=== PATIENT | female | born 1965 | race Caucasian/White ===

== ENCOUNTER 2022-04-04 10:15 | Inpatient (IN) ==
[2022-04-04 12:46] LABS: Hematocrit 41.8 % (35.3-44.9); Hemoglobin 14.1 g/dL (11.5-15.4); Mean Corpuscular HGB Conc 33.7 g/dL (31.6-35.5); Mean Corpuscular Hemoglobin 30.7 pg (28.0-33.3); Mean Corpuscular Volume 91.1 fL (83.0-100.0); Mean Platelet Volume 8.5 fL (9.4-12.4); Platelet Count 377 K/mcL (140-400); Red Blood Count 4.59 M/mcL (3.82-4.97); Red Cell Distribution Width 13.6 % (11.5-14.5); White Blood Count 13.6 K/mcL (4.3-11.1)
[2022-04-04 12:49] LABS: Lymphocytes # 0.5 K/mcL (0.6-4.6)
[2022-04-04 13:07] LABS: Troponin I < 0.03 ng/mL (< 0.04)
[2022-04-04 13:09] LABS: BUN/Creatinine Ratio 7 (6-26); Blood Urea Nitrogen 4 mg/dL (6-20); Calcium 8.9 mg/dL (8.6-10.3); Carbon Dioxide 26 mEq/L (23-29); Chloride 96 mEq/L (98-107); Glucose 120 mg/dL (70-105); Osmolality,Calculated 270 (280-300); Potassium 4.2 mEq/L (3.5-5.1); Sodium 131 mEq/L (136-145); eGFR For African Americans > 60 (> 60); eGFR For Non-African Americans > 60 (> 60)
[2022-04-04 13:13] LABS: Monocytes # 0.8 K/mcL (0.0-1.3); Neutrophils # 12.2 K/mcL (1.6-8.9)
[2022-04-04 13:14] LABS: Platelet Estimate Normal (Normal)
[2022-04-04] MEDS ORDERED: Ipratropium/Albuterol Neb 3 ML IH ONE (14:13)
[2022-04-04] MEDS ORDERED: methylPREDNISolone 125 MG/2 ML VIAL IVP ONE (14:41)
[2022-04-04] MEDS ORDERED: Azithromycin 500 MG in 0.9 % Sodium Chloride 250 ML IVPB ONE (14:45)
[2022-04-04] MEDS ORDERED: cefTRIAXone 1,000 MG in Water for inj. (sterile) 10 ML IVP ONE (15:00)
[2022-04-04] MEDS ORDERED: Acetaminophen 325 MG TABLET PO PRN (17:06)
[2022-04-04] MEDS ORDERED: Mag Hydrox/Al Hydrox/Simeth 30 ML UDC PO PRN (17:06)
[2022-04-04] MEDS ORDERED: Naloxone 0.4 MG/ML INJ IVP PRN (17:06)
[2022-04-04] MEDS ORDERED: MOM Conc 10 ML UD.LIQ PO PRN (17:06)
[2022-04-04] MEDS: Nicotine 21 MG PATCH.TD24 TD SCH (18:56)
[2022-04-04] MEDS: Budesonide/Formoterol 160/4.5 1 PUFF INH IH SCH (20:18)
[2022-04-04] MEDS: Ipratropium/Albuterol Neb 3 ML IH SCH (20:19)
[2022-04-04] MEDS: Melatonin 3 MG TABLET PO PRN (21:07)
[2022-04-04] MEDS: Benzonatate 100 MG CAPSULE PO PRN (21:07)
[2022-04-04] MEDS: Ondansetron 4 MG/2 ML VIAL IVP PRN (21:09)
[2022-04-04 22:15] LABS: Adenovirus Not Detected (Not Detect); Bordetella Pertussis Not Detected (Not Detect); Chlamydophila pneumoniae Not Detected (Not Detect); Coronavirus 229E Not Detected (Not Detect); Coronavirus HKU1 Not Detected (Not Detect); Coronavirus NL63 Not Detected (Not Detect); Coronavirus OC43 Not Detected (Not Detect); Human Metapneumovirus Not Detected (Not Detect); Human Rhinovirus/Enterovirus DETECTED (Not Detect); Influenza A Subtype 2009 H1 Not Detected (Not Detect); Influenza B Not Detected (Not Detect); Mycoplasma pneumoniae Not Detected (Not Detect); Parainfluenza Virus 1 Not Detected (Not Detect); Parainfluenza Virus 2 Not Detected (Not Detect); Parainfluenza Virus 3 Not Detected (Not Detect); Parainfluenza Virus 4 Not Detected (Not Detect); Respiratory Syncytial Virus Not Detected (Not Detect); SARS-CoV-2 Not Detected (Not Detect)
[2022-04-05] MEDS: MethylPREDNISolone 40 MG/ML VIAL IVP SCH ×3 (00:26→14:58)
[2022-04-05] MEDS: Ipratropium/Albuterol Neb 3 ML IH SCH ×6 (00:33→20:37)
[2022-04-05] MEDS: Ondansetron 4 MG/2 ML VIAL IVP PRN (05:42)
[2022-04-05] MEDS: *HR* Enoxaparin 40 MG/0.4 ML SYRINGE SQ SCH (05:43)
[2022-04-05 07:18] LABS: Basophils # 0.1 K/mcL (0.0-0.2); Basophils % 0.4 %; Eosinophils % 0.2 %; Hematocrit 38.9 % (35.3-44.9); Hemoglobin 13.4 g/dL (11.5-15.4); Immature Granulocytes % 2.9 % (0-4); Lymphocytes # 0.8 K/mcL (0.6-4.6); Lymphocytes % 5.8 %; Mean Corpuscular HGB Conc 34.4 g/dL (31.6-35.5); Mean Corpuscular Hemoglobin 31.1 pg (28.0-33.3); Mean Corpuscular Volume 90.3 fL (83.0-100.0); Mean Platelet Volume 8.3 fL (9.4-12.4); Monocytes % 6.9 %; Neutrophils # 11.9 K/mcL (1.6-8.9); Platelet Count 417 K/mcL (140-400); Red Blood Count 4.31 M/mcL (3.82-4.97); Red Cell Distribution Width 13.5 % (11.5-14.5); Segmented Neutrophils % 83.8 %; White Blood Count 14.2 K/mcL (4.3-11.1)
[2022-04-05 07:43] LABS: BUN/Creatinine Ratio 13 (6-26); Blood Urea Nitrogen 8 mg/dL (6-20); Calcium 9.1 mg/dL (8.6-10.3); Carbon Dioxide 27 mEq/L (23-29); Chloride 98 mEq/L (98-107); Glucose 138 mg/dL (70-105); Osmolality,Calculated 279 (280-300); Potassium 3.8 mEq/L (3.5-5.1); Sodium 134 mEq/L (136-145); eGFR For African Americans > 60 (> 60); eGFR For Non-African Americans > 60 (> 60)
[2022-04-05] MEDS: Budesonide/Formoterol 160/4.5 1 PUFF INH IH SCH ×2 (07:44→20:37)
[2022-04-05] MEDS ORDERED: Azithromycin desensitization 1 mg/mL IVP SCH (09:00)
[2022-04-05] MEDS: *HR* HYDROcodone/Acet 5/325 mg TABLET PO PRN ×3 (09:10→19:16)
[2022-04-05] MEDS: amLODIPine 5 MG TABLET PO SCH (09:11)
[2022-04-05] MEDS: Nicotine 21 MG PATCH.TD24 TD SCH (09:12)
[2022-04-05] MEDS: Ibuprofen 800 MG TABLET PO PRN ×2 (12:28→21:40)
[2022-04-05] MEDS ORDERED: Pregabalin 50 MG CAPSULE PO SCH (12:30)
[2022-04-05] MEDS: cefTRIAXone 2,000 MG in 0.9 % Sodium Chloride Mini Bag 100 ML IVPB SCH (16:38)
[2022-04-05] MEDS: Azithromycin 500 MG in 0.9 % Sodium Chloride 250 ML IVPB SCH (17:13)
[2022-04-05] MEDS: Carisoprodol 350 MG TABLET PO PRN (21:40)
[2022-04-05] MEDS: Levalbuterol Neb 0.63 MG/3 ML IH SCH (23:24)
[2022-04-06] MEDS: MethylPREDNISolone 40 MG/ML VIAL IVP SCH ×3 (00:12→18:35)
[2022-04-06] MEDS: Melatonin 3 MG TABLET PO PRN (00:35)
[2022-04-06] MEDS: *HR* HYDROcodone/Acet 5/325 mg TABLET PO PRN ×5 (00:35→23:03)
[2022-04-06] MEDS: Pregabalin 50 MG CAPSULE PO SCH ×3 (00:37→21:55)
[2022-04-06] MEDS: Levalbuterol Neb 0.63 MG/3 ML IH SCH ×4 (04:21→22:02)
[2022-04-06] MEDS: *HR* Enoxaparin 40 MG/0.4 ML SYRINGE SQ SCH ×2 (05:57→06:01)
[2022-04-06 07:16] LABS: Basophils # 0.1 K/mcL (0.0-0.2); Basophils % 0.5 %; Eosinophils % 0.1 %; Hematocrit 39.4 % (35.3-44.9); Hemoglobin 13.5 g/dL (11.5-15.4); Immature Granulocytes % 4.4 % (0-4); Lymphocytes # 1.2 K/mcL (0.6-4.6); Mean Corpuscular HGB Conc 34.3 g/dL (31.6-35.5); Mean Corpuscular Hemoglobin 30.8 pg (28.0-33.3); Mean Corpuscular Volume 89.7 fL (83.0-100.0); Mean Platelet Volume 8.4 fL (9.4-12.4); Monocytes # 1.2 K/mcL (0.0-1.3); Neutrophils # 16.1 K/mcL (1.6-8.9); Platelet Count 493 K/mcL (140-400); Red Blood Count 4.39 M/mcL (3.82-4.97); Red Cell Distribution Width 13.6 % (11.5-14.5); White Blood Count 19.4 K/mcL (4.3-11.1)
[2022-04-06 07:33] LABS: BUN/Creatinine Ratio 18 (6-26); Blood Urea Nitrogen 12 mg/dL (6-20); Calcium 9.4 mg/dL (8.6-10.3); Carbon Dioxide 27 mEq/L (23-29); Chloride 96 mEq/L (98-107); Glucose 122 mg/dL (70-105); Osmolality,Calculated 277 (280-300); Potassium 3.8 mEq/L (3.5-5.1); Sodium 133 mEq/L (136-145); eGFR For African Americans > 60 (> 60); eGFR For Non-African Americans > 60 (> 60)
[2022-04-06] MEDS: Carisoprodol 350 MG TABLET PO PRN ×4 (08:13→23:03)
[2022-04-06] MEDS: amLODIPine 5 MG TABLET PO SCH (08:14)
[2022-04-06] MEDS: Ibuprofen 800 MG TABLET PO PRN ×2 (08:14→16:17)
[2022-04-06] MEDS: Nicotine 21 MG PATCH.TD24 TD SCH (08:15)
[2022-04-06] MEDS: Budesonide/Formoterol 160/4.5 1 PUFF INH IH SCH ×2 (09:31→22:02)
[2022-04-06] MEDS ORDERED: Levalbuterol Neb 0.63 MG/3 ML IH PRN (10:54)
[2022-04-06] MEDS ORDERED: Ipratropium/Albuterol Neb 3 ML IH SCH (12:00)
[2022-04-06] MEDS: Ondansetron 4 MG/2 ML VIAL IVP PRN (16:18)
[2022-04-06] MEDS: cefTRIAXone 2,000 MG in 0.9 % Sodium Chloride Mini Bag 100 ML IVPB SCH (16:18)
[2022-04-06] MEDS: Ipratropium Neb 0.5 MG NEBULIZER IH SCH ×2 (16:24→22:02)
[2022-04-06] MEDS: Azithromycin 500 MG in 0.9 % Sodium Chloride 250 ML IVPB SCH (18:34)
[2022-04-06] MEDS: Benzonatate 100 MG CAPSULE PO PRN (23:03)
[2022-04-07] MEDS: *HR* HYDROcodone/Acet 5/325 mg TABLET PO PRN ×3 (03:51→14:59)
[2022-04-07] MEDS: Carisoprodol 350 MG TABLET PO PRN ×3 (03:51→14:59)
[2022-04-07] MEDS: Ibuprofen 800 MG TABLET PO PRN ×2 (03:51→12:48)
[2022-04-07] MEDS: Levalbuterol Neb 0.63 MG/3 ML IH SCH ×2 (04:08→09:39)
[2022-04-07] MEDS: Ipratropium Neb 0.5 MG NEBULIZER IH SCH ×2 (04:09→09:39)
[2022-04-07] MEDS: *HR* Enoxaparin 40 MG/0.4 ML SYRINGE SQ SCH (05:57)
[2022-04-07] MEDS: MethylPREDNISolone 40 MG/ML VIAL IVP SCH (05:57)
[2022-04-07 06:32] VITALS: BP 171/73; PULSE 79; RESP 16; TEMP 98; O2SAT 96
[2022-04-07 07:03] LABS: Hematocrit 37.8 % (35.3-44.9); Hemoglobin 13.1 g/dL (11.5-15.4); Mean Corpuscular HGB Conc 34.7 g/dL (31.6-35.5); Mean Corpuscular Hemoglobin 31.6 pg (28.0-33.3); Mean Corpuscular Volume 91.3 fL (83.0-100.0); Mean Platelet Volume 8.9 fL (9.4-12.4); Platelet Count 491 K/mcL (140-400); Red Blood Count 4.14 M/mcL (3.82-4.97); Red Cell Distribution Width 13.9 % (11.5-14.5); White Blood Count 20.6 K/mcL (4.3-11.1)
[2022-04-07 07:20] LABS: BUN/Creatinine Ratio 18 (6-26); Blood Urea Nitrogen 12 mg/dL (6-20); Calcium 9.2 mg/dL (8.6-10.3); Carbon Dioxide 29 mEq/L (23-29); Chloride 94 mEq/L (98-107); Glucose 98 mg/dL (70-105); Osmolality,Calculated 274 (280-300); Potassium 3.5 mEq/L (3.5-5.1); Sodium 132 mEq/L (136-145); eGFR For African Americans > 60 (> 60); eGFR For Non-African Americans > 60 (> 60)
[2022-04-07] MEDS: Pregabalin 50 MG CAPSULE PO SCH (09:05)
[2022-04-07] MEDS: amLODIPine 5 MG TABLET PO SCH (09:06)
[2022-04-07] MEDS: Nicotine 21 MG PATCH.TD24 TD SCH (09:06)
[2022-04-07] MEDS: Budesonide/Formoterol 160/4.5 1 PUFF INH IH SCH (09:39)
== END 2022-04-07 15:48 | disposition home or self-care (01) | DRG 720 ==
LOC: INPPIK 10:15 → EMEROOPIK 10:15 → INPPIK 17:24
PROVIDERS: ADMIT Family Medicine; ATTEND Family Medicine